=== PATIENT | male | born 1980 | race Caucasian/White ===

== ENCOUNTER 2017-12-23 15:37 | Emergency (ER) | payer OTHER ==
--- NOTE | 2017-12-23 15:52 | ED.PDOC ---
History of Present Illness - General Chief Complaint: Lower Extremity Injury Stated Complaint: L ankle injury Time Seen by Provider: 12/23/17 15:44 Source: patient Exam Limitations: no limitations - History of Present Illness Occurred: this morning Pain - Lower Extremity: moderate: Left Ankle Method of Injury: twisted Improving Factors: immobilization Worsening Factors: movement Allergies/Adverse Reactions: Allergies NO KNOWN ALLERGY Allergy (Verified 12/23/17 15:45) Home Medications: Ambulatory Orders Tramadol HCl 50 mg PO Q4HWA PRN #15 tab 12/23/17 Review of Systems - Review of Systems Constitutional: States: no symptoms reported EENTM: States: no symptoms reported Respiratory: States: no symptoms reported Musculoskeletal: States: joint pain, joint swelling Skin: States: no symptoms reported Neurological: Denies: numbness, paresthesia Endocrine: States: no symptoms reported Family Medical History - Family History Father Family History: No Known Living Status: Still Living Physical Exam - Physical Exam General Appearance: Alert, No apparent distress Leg: normal inspection, non-tender Knee: normal inspection, non-tender Ankle: limited ROM, swelling - 2 = EDEMA to lateral joint Foot: normal inspection, non-tender Neuro/Tendon: normal sensation Mental Status: alert, oriented x 3 Skin: normal color, warm/dry Departure - Departure Clinical Impression: Sprain of left ankle Disposition: Discharge to Home or Self Care Departure Forms: ED Discharge - Pt. Copy, Patient Portal Self Enrollment Instructions: DI for Leg Pain Referrals: Devyn Moreira MD [Primary Care Provider] - 1-2 Weeks Prescriptions: Tramadol HCl 50 mg PO Q4HWA PRN #15 tab PRN Reason: Moderate To Severe Pain Home Medications: Ambulatory Orders Tramadol HCl 50 mg PO Q4HWA PRN #15 tab 12/23/17
[2017-12-23 15:55] VITALS: BP 139/91; TEMP 99.2
--- NOTE | 2017-12-23 16:08 | RAD ---
EXAM DESCRIPTION: Ankle,Left 3 Views CLINICAL HISTORY: turned ankle COMPARISON: None FINDINGS: 3 view(s) submitted. No fracture or dislocation is identified. Bone marrow attenuation is unremarkable. No radiopaque foreign body is identified. There are degenerative changes. There is lateral malleolar soft tissue swelling. Calcific density distal to the distal fibula is nonspecific. This could be vascular calcification. Small avulsion fracture is less likely but not completely excluded. No definite donor site is seen. IMPRESSION: No definite acute fracture or dislocation. Electronically signed by: Cristobal Nguyen 12/23/2017 4:07 PM [facility]
[2017-12-23 17:06] VITALS: O2SAT 97
== END 2017-12-23 16:45 | disposition home or self-care (01) ==
LOC: ER 15:37
DX: S93.402A Sprain of unspecified ligament of left ankle, initial encounter (principal); X50.9XXA Other and unspecified overexertion or strenuous movements or postures, initial encounter; Y93.89 Activity, other specified; Y92.9 Unspecified place or not applicable

== ENCOUNTER 2019-05-09 17:11 | Emergency (ER) | payer SELFPAY ==
[2019-05-09] MEDS ORDERED: TETRACAINE HCL 0.5% OPHTH SOL 1 DROP ONE (17:21)
[2019-05-09 17:30] VITALS: BP 145/89; TEMP 97.5; O2SAT 95
[2019-05-09] MEDS ORDERED: ERYTHROMYCIN OPHTH OINT 1 APPLIC RIGHT_EYE ONE (17:44)
--- NOTE | 2019-05-09 17:48 | ED.PDOC ---
History of Present Illness - General Chief Complaint: Eye Problems Stated Complaint: Foreign body in the R eye Time Seen by Provider: 05/09/19 17:20 Source: patient Exam Limitations: no limitations - History of Present Illness Initial Comments: The patient is a 38-year-old male presenting to the emergency room secondary to getting a piece of metal in his eye it. It was a piece that dropped off of something that he had been working on. It was not particularly hot. It happened about 4 hours prior to arrival. He has been unable to get it out on his own. No evidence of penetration of the globe. Mild blurry vision secondary to irritation. No other injury. The spot is just to the left of the center of the pupil. Timing/Duration: 4-6 hours Severity: moderate Improving Factors: nothing Worsening Factors: nothing Associated Symptoms: denies symptoms Allergies/Adverse Reactions: Allergies NO KNOWN ALLERGY Allergy (Verified 05/09/19 17:30) Review of Systems - Review of Systems Constitutional: States: no symptoms reported EENTM: States: see HPI Respiratory: States: no symptoms reported Cardiology: States: no symptoms reported Gastrointestinal/Abdominal: States: no symptoms reported Genitourinary: States: no symptoms reported Musculoskeletal: States: no symptoms reported Skin: States: no symptoms reported Neurological: States: no symptoms reported Endocrine: States: no symptoms reported All other Systems: No Change from Baseline Past Medical History (General) - Patient Medical History Hx Stroke: No Hx of COPD: No Hx Cardiac Disorders: No Hx Congestive Heart Failure: No Hx Hypertension: No Hx Diabetes: No Hx Cancer: No Surgical History: other - Vaccination History Hx Tetanus, Diphtheria Vaccination: Yes Hx Influenza Vaccination: Yes Hx Pneumococcal Vaccination: No - Social History Hx Tobacco Use: No Hx Alcohol Use: Yes Hx Substance Use: No Hx Substance Use Treatment: No Hx Depression: No - Female History Patient is a Female of Child Bearing Age (10 -59 yrs old): No Patient : No Family Medical History - Family History Father Family History: No Known Living Status: Still Living Physical Exam - Physical Exam General Appearance: Alert, Comfortable, No apparent distress Eye Exam: right normal - See above Ears, Nose, Throat: hearing grossly normal Respiratory: no respiratory distress, no accessory muscle use Cardiovascular/Chest: normal peripheral pulses Peripheral Pulses: radial,right: 2+, radial,left: 2+ Rectal Exam: deferred Extremity: normal capillary refill Neurologic: rn correctional II-XII nml as tested, alert, normal mood/affect, oriented x 3 Skin Exam: normal color Comments: Vital Signs - 24 hr 05/09/19 05/09/19 17:15 17:24 Temperature 97.5 F L Pulse Rate [ 69 69 Pulse ox] Respiratory 16 16 Rate Blood Pressure 145/89 [R brachial] O2 Sat by Pulse 95 Oximetry Progress - Progress Progress: 05/09/19 17:46 The patient is a 38-year-old male presenting to the emergency room secondary to getting small piece of metal in his right eye. Fluorescein exam was done to confirm no other injury. The fragment of metal was removed with a 22-gauge needle. Patient tolerated this well after tetracaine was applied. There is still a small rust ring present. He has deferred burring of the rust ring. He does understand this may cause some mild prolonged visual distortion. Erythromycin ointment is to be used 6 times a day for the first couple of days and then 4 times a day for the next week. He is also to sheepskin pickler some preservative-free eyedrops and use them every hour or 2 for the next week. Safety goggles off course still recommended. Monitor for any evidence of infection. ER warnings were given. [email or web address] [phone] Departure - Departure Clinical Impression: Corneal abrasion Qualifiers: Encounter type: initial encounter Laterality: right Qualified Code(s): S05.01XA - Injury of conjunctiva and corneal abrasion without foreign body, right eye, initial encounter Disposition: Discharge to Home or Self Care Condition: Fair Departure Forms: ED Discharge - Pt. Copy, Patient Portal Self Enrollment Instructions: Corneal Abrasion (DC) Diet: regular diet Activity: increase activity as tolerated Referrals: Suraj Noguera MD [Primary Care Provider] - 1-2 Weeks Additional Instructions: The patient is a 38-year-old male presenting to the emergency room secondary to getting small piece of metal in his right eye. Fluorescein exam was done to confirm no other injury. The fragment of metal was removed with a 22-gauge needle. Patient tolerated this well after tetracaine was applied. There is still a small rust ring present. He has deferred burring of the rust ring. He does understand this may cause some mild prolonged visual distortion. Erythromycin ointment is to be used 6 times a day for the first couple of days and then 4 times a day for the next week. He is also to sheepskin pickler some preservative-free eyedrops and use them every hour or 2 for the next week. Safety goggles off course still recommended. Monitor for any evidence of infection. Motrin will also help with discomfort. ER warnings were given.
== END 2019-05-09 18:08 | disposition home or self-care (01) ==
LOC: ER 17:11
DX: T15.01XA Foreign body in cornea, right eye, initial encounter (principal); X58.XXXA Exposure to other specified factors, initial encounter; Y92.9 Unspecified place or not applicable